=== PATIENT | female | born 1990 | race Caucasian/White ===

== ENCOUNTER → 2016-07-24 | Outpatient (CLI) | payer OTHER, MEDICAID ==
[2015-03-31 15:16] VITALS: BP 107/67
--- NOTE | 2016-07-24 11:12 | RAD ---
HISTORY: Back pain. Study: Multiple views of the thoracic and lumbar spine. Comparison: None available. Findings: 12 rib-bearing thoracic vertebra and 5 [id number] lumbar vertebra. No acute fracture or listhes is. Mild dextro curvature of the lumbar spine, which may represent positioning versus muscle spasm. Otherwise, the vertebral body heights and disc spaces are otherwise maintained. The visualized SI quique ints are normal. The cardiac silhouette and lungs are normal. The soft tissues are unremarkable. IMPRESSION: Mild curvature of the lumbar spine. Remaining exam is unremarkable. Reported By:
--- NOTE | 2016-07-24 11:12 | RAD ---
HISTORY: Back pain. Study: Multiple views of the thoracic and lumbar spine. Comparison: None available. Findings: 12 rib-bearing thoracic vertebra and 5 [id number] lumbar vertebra. No acute fracture or listhes is. Mild dextro curvature of the lumbar spine, which may represent positioning versus muscle spasm. Otherwise, the vertebral body heights and disc spaces are otherwise maintained. The visualized SI quique ints are normal. The cardiac silhouette and lungs are normal. The soft tissues are unremarkable. IMPRESSION: Mild curvature of the lumbar spine. Remaining exam is unremarkable. Reported By:
--- NOTE | 2016-07-24 11:13 | RAD ---
HISTORY: Knee Pain. Study: Complete three view series of the right knee joint. Comparison: None available. Findings: No acute fracture, subluxation, or dislocation is identified. The medial and lateral tibiofemoral c ompartments appear unremarkable without loss of significant joint space. The lateral radiograph rupali ls to demonstrate a visible joint effusion. Patellofemoral compartment is unremarkable in appearanc e. No lytic or bone forming lesions are seen. No high-grade osteochondral defects are observed. No u nexpected radiopaque foreign bodies are seen. There is no evidence for significant degenerative arth rosis. No focal joint erosions are seen, either. IMPRESSION: Faint bilateral meniscal chondrocalcinosis. No other knee joint abnormalities are observed. Reported By:
--- NOTE | 2016-07-24 11:15 | RAD ---
HISTORY: Acute left knee pain Study: Left knee four view Comparison: None Findings: No evidence for acute cortical disruption or dislocation. The medial and lateral tibiofemoral latonia rtments appear unremarkable without loss of significant joint space. The lateral radiograph fails t o demonstrate significant joint effusion. Patellofemoral compartment is normal in its appearance. IMPRESSION: 1. Negative exam. Reported By:
== END | disposition home or self-care (01) | DRG 552 ==
LOC: RAD 10:09
PROVIDERS: ATTEND Nurse Practitioner Family
DX: M54.6 Pain in thoracic spine (principal); M54.5 Low back pain; M25.561 Pain in right knee; M25.562 Pain in left knee; M11.262 Other chondrocalcinosis, left knee; M11.261 Other chondrocalcinosis, right knee
CPT/HCPCS: 72072; 72100; 73564

== ENCOUNTER → 2016-11-02 | Outpatient (CLI) | payer OTHER, MEDICAID ==
[2015-03-31 15:16] VITALS: BP 107/67
[2016-11-02 13:51] LABS: RHEUMATOID FACTOR NEGATIVE (NEGATIVE)
[2016-11-02 14:00] LABS: BLOOD UREA NITROGEN 18 mg/dL (7-18); CALCIUM 9.1 mg/dL (8.5-10.1); CARBON DIOXIDE 27.7 mmol/L (21-32); CHLORIDE 105 mmol/L (98-107); CREATININE 0.96 mg/dL (0.55-1.02); SODIUM 140 mmol/L (136-145); TSH (3RD GENERATION) 1.411 uIU/mL (0.358-3.74); URIC ACID 4.4 mg/dL (2.6-6.0); eGFR BLACK RACES > 60 (>60); eGFR NON BLACK RACES > 60 (>60)
--- NOTE | 2016-11-02 16:36 | RAD ---
HISTORY: Pain right knee. Study: Right knee three views Comparison: None. Findings: There is no evidence for acute cortical disruption or dislocation. The medial and lateral tibiofemor al compartments are unremarkable without significant joint space narrowing. The lateral radiograph f ails to demonstrate significant joint effusion. Patellofemoral compartment is normal in appearance. IMPRESSION: 1. Negative exam. Reported By:
== END ==
LOC: LAB 10:59
PROVIDERS: ATTEND Nurse Practitioner Family
DX: E03.8 Other specified hypothyroidism (principal); M25.561 Pain in right knee
CPT/HCPCS: 36415; 73564; 80048; 84443; 84550; 85652; 86430

== ENCOUNTER → 2016-11-30 | Outpatient (CLI) | payer OTHER, MEDICAID ==
[2015-03-31 15:16] VITALS: BP 107/67
--- NOTE | 2016-12-01 09:02 | MRI ---
MRI right knee without contrast Indication: Right knee pain Technique: Multiplanar, multi sequence imaging of the right knee without IV contrast administration. Findings: The extensor mechanism is intact. The patella demonstrates normal position within the femor al trochlear sulcus with mild thinning of the lateral patellar articular cartilage without subchondra l marrow signal abnormality. The tibial tuberosity to trochlear groove distance is increased measurin g approximate 2.3 cm. There is a small amount fluid in the suprapatellar pouch. The medial and latera l retinacular complexes are intact. Pes anserine tendons are normal. No popliteal fossa cyst. The pop liteus muscle and tendon are normal. The medial femorotibial compartment demonstrates no significant chondral thinning or subchondral chyna ow signal abnormality. The lateral femorotibial compartment demonstrates no chondral thinning or subc hondral marrow edema. The cruciate and collateral ligaments are normal. Biceps are still tibial band are normal. The medial meniscus and lateral meniscus demonstrate no evidence of tear. There is a disc oid lateral meniscus. 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 The femor al trochlea appears normal in is development and there is no tilting or lateral subluxation of the pa tella. Clinical correlation is needed. 2. Discoid lateral meniscus. 3. No acute ligamentous or meniscal tear. Femorotibial articular cartilage is normal. Reported By:
== END | disposition home or self-care (01) ==
LOC: RAD 15:10
PROVIDERS: ATTEND Nurse Practitioner Family
DX: M25.561 Pain in right knee (principal); M23.361 Other meniscus derangements, other lateral meniscus, right knee
CPT/HCPCS: 73721

== ENCOUNTER → 2016-12-30 | Outpatient (CLI) | payer OTHER, MEDICAID ==
[2015-03-31 15:16] VITALS: BP 107/67
--- NOTE | 2016-12-30 16:40 | RAD ---
Examination: Right knee History: Knee pain, no injury Findings: There is no evidence for fracture, dislocation or joint space asymmetry. A true lateral vie w was not obtained; synovial effusion cannot be reliably excluded. Femoral-tibial alignment is normal and the patella does not appear displaced. Impression: No significant abnormality identified. See above. Reported By:
== END ==
LOC: RAD 10:30
PROVIDERS: ATTEND Orthopaedic Surgery
DX: M25.561 Pain in right knee (principal)
CPT/HCPCS: 73564